=== PATIENT | male | born 1975 | race Caucasian/White ===

== ENCOUNTER 2022-03-18 22:23 | Inpatient (IN) | payer OTHER ==
[2022-03-18 23:16] VITALS: BMI 26.5
[2022-03-18] MEDS ORDERED: BENZOCAINE/MENTHOL (CHLORASEPTIC ) LOZENGE MM PRN (23:38)
[2022-03-18] MEDS ORDERED: MAGNESIUM HYDROX 2400MG/30ML ORAL SUSPENSION 30 ML CUP PO PRN (23:38)
[2022-03-18] MEDS ORDERED: BISMUTH SUBSALICYLATE 524 MG/30 ML PO PRN (23:38)
[2022-03-18] MEDS ORDERED: ACETAMINOPHEN 325 MG TABLET (FP) PO PRN ×2 (23:38)
[2022-03-18] MEDS ORDERED: NALOXONE HCL (KLOXXADO) 8 MG SPRAY NS PRN (23:38)
[2022-03-18] MEDS ORDERED: IBUPROFEN 400 MG TABLET (FP) PO PRN (23:38)
[2022-03-18] MEDS ORDERED: ONDANSETRON *ODT* 4 MG TABLET SL PRN (23:38)
[2022-03-18] MEDS ORDERED: MAG HYDROX/AL HYDROX/SIMETH 30 ML UNIT-DOSE CUP PO PRN (23:38)
[2022-03-18] MEDS ORDERED: NICOTINE 10 MG CARTRIDGE (INHALER) IH PRN (23:38)
[2022-03-18] MEDS ORDERED: LOPERAMIDE HCL 2 MG CAPSULE PO PRN (23:38)
[2022-03-18] MEDS ORDERED: MAGNESIUM CITRATE 300 ML BOTTLE PO PRN (23:38)
[2022-03-18] MEDS ORDERED: DICYCLOMINE HCL 10 MG CAPSULE PO PRN (23:38)
[2022-03-19] MEDS ORDERED: METHOCARBAMOL 500 MG TABLET ONE (01:38)
[2022-03-19] MEDS ORDERED: IBUPROFEN 400 MG TABLET (FP) PO ONE (01:39)
[2022-03-19] MEDS: METHOCARBAMOL 500 MG TABLET PO PRN ×3 (01:40→18:03)
[2022-03-19] MEDS ORDERED: chlordiazePOXIDE HCL 25 MG CAPSULE PO PRN (07:11)
[2022-03-19] MEDS ORDERED: diazePAM 5 MG TABLET ONE (07:31)
[2022-03-19] MEDS: diazePAM 5 MG TABLET PO PRN ×2 (07:35→14:53)
[2022-03-19 10:05] VITALS: RESP 18
[2022-03-19] MEDS: IBUPROFEN 600 MG TABLET (FP) PO PRN (10:47)
[2022-03-19] MEDS: PRENATAL VITAMINS W/ FOLIC ACID TABLET (FP) PO SCH (10:47)
[2022-03-19] MEDS: diazePAM 5 MG TABLET PO SCH ×3 (10:48→22:11)
[2022-03-19] MEDS: NICOTINE 21 MG/24 HOURS TOPICAL PATCH TD SCH (10:49)
[2022-03-19] MEDS ORDERED: chlordiazePOXIDE HCL 25 MG CAPSULE PO SCH (11:00)
[2022-03-19 15:33] LABS: HEMATOCRIT 39.3 % (35.4-49); HEMOGLOBIN 13.7 GM/dL (11.7-16.9); MCH 33.7 pg (25.7-33.7); MCHC 34.7 g/dl (32.0-35.9); MEAN CELL VOLUME 97.1 fl (80-96); MEAN PLT VOLUME 7.9 fl (7.5-11.1); PLATELET COUNT 262 10^3/uL (134-434); RBC 4.05 M/mm3 (4.00-5.60); WHITE BLOOD COUNT 7.8 K/mm3 (4.0-10.0)
[2022-03-19 17:17] LABS: ALBUMIN 3.2 g/dl (3.4-5.0); CALCIUM 8.3 mg/dL (8.5-10.1)
[2022-03-19 17:19] LABS: BLOOD UREA NITROGEN 5.9 mg/dL (7-18)
[2022-03-19 17:21] LABS: CREATININE 0.5 mg/dL (0.55-1.3)
[2022-03-19 17:23] LABS: BILIRUBIN,TOTAL 0.8 mg/dL (0.2-1); TOT PROT 5.8 g/dl (6.4-8.2)
[2022-03-19] MEDS: hydrOXYzine PAMOATE 25 MG CAPSULE (FP) PO PRN ×2 (18:02→22:11)
[2022-03-19] MEDS ORDERED: MELATONIN 5 MG TABLETS PO SCH (22:00)
[2022-03-19] MEDS ORDERED: THIAMINE HCL 100 MG TABLET (FP) PO SCH (22:00)
[2022-03-19] MEDS ORDERED: QUEtiapine FUMARATE 50 MG TABLET PO PRN (22:00)
[2022-03-20] MEDS: diazePAM 5 MG TABLET PO SCH ×2 (06:06→10:45)
[2022-03-20] MEDS: METHOCARBAMOL 500 MG TABLET PO PRN (10:44)
[2022-03-20] MEDS: IBUPROFEN 600 MG TABLET (FP) PO PRN (10:44)
[2022-03-20] MEDS: NICOTINE 21 MG/24 HOURS TOPICAL PATCH TD SCH (10:44)
[2022-03-20] MEDS: PRENATAL VITAMINS W/ FOLIC ACID TABLET (FP) PO SCH (11:02)
[2022-03-20] MEDS: diazePAM 5 MG TABLET PO PRN (12:46)
[2022-03-20 14:11] VITALS: BP 122/79; PULSE 75; TEMP 96.8
[2022-03-21] MEDS ORDERED: chlordiazePOXIDE HCL 25 MG CAPSULE PO SCH (05:00)
[2022-03-21] MEDS ORDERED: diazePAM 5 MG TABLET PO SCH (06:00)
[2022-03-22] MEDS ORDERED: chlordiazePOXIDE HCL 10 MG CAPSULE PO PRN
[2022-03-22] MEDS ORDERED: chlordiazePOXIDE HCL 10 MG CAPSULE PO SCH (05:00)
[2022-03-22] MEDS ORDERED: diazePAM 5 MG TABLET PO SCH (06:00)
[2022-03-23] MEDS ORDERED: chlordiazePOXIDE HCL 10 MG CAPSULE PO SCH (05:00)
[2022-03-23] MEDS ORDERED: diazePAM 5 MG TABLET PO ONE (06:00)
[2022-03-24] MEDS ORDERED: chlordiazePOXIDE HCL 10 MG CAPSULE PO ONE (05:00)
== END 2022-03-20 14:25 | disposition left against medical advice (07) | DRG 770 ==
LOC: YASAS 22:23 → Y6N 03-19 08:42
PROVIDERS: ADMIT Allergy & Immunology; ATTEND Surgery
PROC: HZ2ZZZZ Detoxification Services for Substance Abuse Treatment (ICD-10-PCS; principal; 2022-03-19)
DX: F10.230 Alcohol dependence with withdrawal, uncomplicated (principal); F12.20 Cannabis dependence, uncomplicated; F17.210 Nicotine dependence, cigarettes, uncomplicated; F10.24 Alcohol dependence with alcohol-induced mood disorder; F31.9 Bipolar disorder, unspecified; I48.91 Unspecified atrial fibrillation; Z28.310 Unvaccinated for COVID-19; Z28.9 Immunization not carried out for unspecified reason
CPT/HCPCS: 36415; 80053; 85027; 86780; 93005; 93010; C9803-CS; U0003; U0005